=== PATIENT | male | born 1955 | race Caucasian/White ===

== ENCOUNTER 2024-05-06 07:56 | Day surgery (SDC) | payer MEDICAID ==
[~2024-05-06] VITALS: Ht 157.5 cm; Wt 68.0 kg
[2024-05-06] MEDS ORDERED: LIDOCAINE 2% 100 MG/5 ML UJET TP ONE (09:28)
[2024-05-06] MEDS ORDERED: fentaNYL citrate 0.05 MG/ML VIAL ONE (09:28)
[2024-05-06] MEDS: fentaNYL citrate 0.05 MG/ML VIAL IVP ONE (09:34)
[2024-05-06] MEDS: LIDOCAINE 2% 100 MG/5 ML UJET TP ONE (09:41)
== END 2024-05-06 10:45 | disposition home or self-care (01) ==
LOC: MDS 07:56 → MMU 07:58 → MDS 10:45
PROVIDERS: ATTEND Internal Medicine Gastroenterology
DX: K59.00 Constipation, unspecified (principal); R14.0 Abdominal distension (gaseous); I10 Essential (primary) hypertension; E11.9 Type 2 diabetes mellitus without complications; E78.00 Pure hypercholesterolemia, unspecified; Z79.890 Hormone replacement therapy; Z79.899 Other long term (current) drug therapy; Z98.890 Other specified postprocedural states
CPT/HCPCS: 45378; 82948; J3010